=== PATIENT | female | born 1975 | race African-American/Black ===

== ENCOUNTER 2019-04-07 08:36 | Emergency (ER) | payer SELFPAY ==
[2019-04-07 09:14] LABS: APPEARANCE,URINE CLEAR; BILIRUBIN,URINE NEGATIVE (NEGATIVE); COLOR,URINE AMBER; GLUCOSE, URINE NEGATIVE (NEGATIVE); KETONES,URINE 20 mg/dL (NEGATIVE); LEUKOCYTE ESTERASE,URINE NEGATIVE (NEGATIVE); NITRITE,URINE NEGATIVE (NEGATIVE); PROTEIN,URINE NEGATIVE (NEGATIVE); URINE SPECIFIC GRAVITY 1.002; UROBILINOGEN,URINE NEGATIVE mg/dL (<2.0)
[2019-04-07] MEDS ORDERED: ONDANSETRON HCL INJ/PF 4 MG/2 ML SDV IV ONE (10:08)
[2019-04-07 10:57] LABS: ABSOLUTE EOSINOPHILS # (AUTO) 0.1 10^3/uL (0.0-0.6); ABSOLUTE LYMPHOCYTES (AUTO) 0.9 10^3/uL (0.5-4.7); ABSOLUTE MONOCYTES (AUTO) 0.4 10^3/uL (0.1-1.4); ABSOLUTE NEUT (AUTO) 1.9 10^3/uL (1.7-8.2); EOSINOPHILS % (AUTO) 2.4 % (0-6); HEMATOCRIT 40.2 % (36.0-47.0); HEMOGLOBIN 13.6 g/dL (12.0-15.5); LYMPHOCYTES % (AUTO) 26.2 % (13-45); MEAN CORPUSCULAR HGB CONC 33.9 g/dL (32.0-36.0); MEAN CORPUSCULAR VOLUME 92 fl (80-97); MONOCYTES % (AUTO) 10.9 % (3-13); PLATELET COUNT 210 10^3/uL (150-450); RED BLOOD COUNT 4.38 10^6/uL (3.72-5.28); SEGMENTED NEUTROPHILS % (AUTO) 59.5 % (42-78); TOTAL CELLS COUNTED % (AUTO) 100 %; WHITE BLOOD COUNT 3.3 10^3/uL (4.0-10.5)
[2019-04-07 11:12] LABS: ALANINE AMINOTRANSFERASE 564 U/L (9-52); ALBUMIN 4.6 g/dL (3.5-5.0); ALKALINE PHOSPHATASE 147 U/L (38-126); ANION GAP 12 (5-19); ASPARTATE AMINO TRANSFERASE 310 U/L (14-36); BILIRUBIN,TOTAL 5.9 mg/dL (0.2-1.3); BLOOD UREA NITROGEN 4 mg/dL (7-20); CALCIUM 9.7 mg/dL (8.4-10.2); CARBON DIOXIDE 24 mmol/L (22-30); CHLORIDE 104 mmol/L (98-107); LIPASE 371.1 U/L (23-300); POTASSIUM 4.3 mmol/L (3.6-5.0); SODIUM 139.8 mmol/L (137-145)
[2019-04-07 11:16] LABS: GLUCOSE 69 mg/dL (75-110)
--- NOTE | 2019-04-07 11:31 | RADIOLOGY REPORT (SQ) ---
EXAM DESCRIPTION: CT ABD/PELVIS WITH IV ONLY COMPLETED DATE/TIME: 04/07/2019 11:14 am REASON FOR STUDY: RUQ pain COMPARISON: None. TECHNIQUE: CT scan of the abdomen and pelvis performed using helical scanning technique with dynamic intravenous contrast injection. No oral contrast. Images reviewed with lung, soft tissue, and bone windows. Reconstructed coronal and sagittal MPR images reviewed. Delayed images for evaluation of the urinary system also acquired. All images stored on PACS. All CT scanners at this facility use dose modulation, iterative reconstruction, and/or weight based d osing when appropriate to reduce radiation dose to as low as reasonably achievable (ALARA). [facility]: Dose Right [facility]: CareDose [facility]: Dose Right [facility]: Teradose 4D [facility]: Nosopharm CONTRAST TYPE AND DOSE: 74 mL Omnipaque 350- low osmolar. RENAL FUNCTION: None required. The patient is less than 50 years old. RADIATION DOSE: . LIMITATIONS: None. FINDINGS: LOWER CHEST: No significant findings. No nodules or infiltrates. LIVER: Normal size. No masses. Dilated intrahepatic and extrahepatic bile ducts. SPLEEN: Normal size. No focal lesions. PANCREAS: No masses. No significant calcifications. No adjacent inflammation or peripancreatic fluid collections. Pancreatic duct not dilated. GALLBLADDER: Gallstones. No inflammatory changes to suggest cholecystitis. ADRENAL GLANDS: No significant masses or asymmetry. RIGHT KIDNEY AND URETER: No solid masses. No significant calcifications. No hydronephrosis or hyd roureter. LEFT KIDNEY AND URETER: No solid masses. No significant calcifications. No hydronephrosis or hydr oureter. AORTA AND VESSELS: No aneurysm. No dissection. Renal arteries, SMA, celiac without stenosis. RETROPERITONEUM: No retroperitoneal adenopathy, hemorrhage or masses. BOWEL AND PERITONEAL CAVITY: No masses or inflammatory changes. No free fluid or peritoneal masses. APPENDIX: Normal. PELVIS: No mass. No free fluid. Normal bladder. ABDOMINAL WALL: No masses. No hernias. BONES: No significant or acute findings. OTHER: No other significant finding. IMPRESSION: 1. GALLSTONES. DILATED BILIARY DUCTS CONSISTENT WITH COMMON BILE DUCT OBSTRUCTION. 2. NO OTHER SIGNIFICANT OR ACUTE FINDING IN THE ABDOMEN OR PELVIS ON CT SCAN WITH IV CONTRAST. TECHNICAL DOCUMENTATION: JOB ID: [id number] Quality ID # [id number]: Final reports with documentation of one or more dose reduction techniques (e.g., Au tomated exposure control, adjustment of the mA and/or kV according to patient size, use of iterative reconstruction technique) 2010 [employer]- All Rights Reserved Reading location - IP/workstation name: [email or web address]
--- NOTE | 2019-04-07 12:28 | ER Document Report ---
ED General <BUNNY ALLEN - Last Filed: 04/07/19 12:22> <SHANNEN GUILLEN - Last Filed: 04/08/19 07:57> - General Chief Complaint: Epigastric Pain Stated Complaint: CHEST PAIN Time Seen by Provider: 04/07/19 09:51 - HPI Notes: Patient is a 43-year-old female who presents to the emergency department for evaluation. She is having epigastric pain. She states she would get it frequently over the last few weeks, worse at night. She states a few nights ago it became significantly more intense. It is epigastric. She complains of pain in her right shoulder as well. She states that she is noticed darkening of her urine as well as yellowing of her eyes. She states occasionally the pain radiates up into her chest. She has had nausea with 3-4 episodes of nonbloody, nonbilious emesis. Normal bowel movements. (BUNNY ALLEN) - Related Data Allergies/Adverse Reactions: No Known Allergies Allergy (Unverified 04/07/19 08:40) Past Medical History - General Information source: Patient - Social History Smoking Status: Never Smoker Chew tobacco use (# tins/day): No Frequency of alcohol use: Occasional Drug Abuse: None Family History: Reviewed & Not Pertinent Patient has suicidal ideation: No Patient has homicidal ideation: No - Medical History Medical History: Negative Renal/ Medical History: Denies: Hx Peritoneal Dialysis Past Surgical History: Reports: Hx Hysterectomy, Hx Oral Surgery - [place] teeth <BUNNY ALLEN - Last Filed: 04/07/19 12:22> Review of Systems - Review of Systems Constitutional: No symptoms reported EENT: See HPI Cardiovascular: No symptoms reported Respiratory: No symptoms reported Gastrointestinal: See HPI Genitourinary: See HPI Female Genitourinary: No symptoms reported Musculoskeletal: No symptoms reported Skin: No symptoms reported Neurological/Psychological: No symptoms reported <KIERA ALLENMAEVE M - Last Filed: 04/07/19 12:22> Physical Exam <TIFFANYBUNNY Rosie - Last Filed: 04/07/19 12:22> - Vital signs Vitals: Temp Pulse Resp BP Pulse Ox 98.1 F 72 16 116/71 100 04/07/19 08:48 04/07/19 08:48 04/07/19 08:48 04/07/19 08:48 04/07/19 08:48 - Notes Notes: Vital signs reviewed, please refer to chart. Head is normocephalic, atraumatic. Pupils equal round, reactive to light. Scleral icterus noted. Neck is supple without meningismus. Heart is regular rate and rhythm. Lungs are clear to auscultation bilaterally. Abdomen is soft, moderate epigastric and right upper quadrant tenderness, with some voluntary guarding but no rebound noted, normoactive bowel sounds throughout. Extremities without cyanosis, clubbing. Posterior calves are nontender. Peripheral pulses are equal. Skin is warm and dry. Patient is awake, alert, neurological exam is nonfocal. (BUNNY ALLEN) Course - Laboratory Result Diagrams: 04/07/19 10:35 04/07/19 10:35 - Diagnostic Test Radiology reviewed: Reports reviewed <BUNNY ALLEN - Last Filed: 04/07/19 12:22> - Laboratory Result Diagrams: 04/08/19 06:48 04/07/19 10:35 <SHANNEN GUILLEN - Last Filed: 04/08/19 07:57> - Re-evaluation Re-evalutation: 04/07/19 12:27 Patient presents emergency department for evaluation. She does show signs of elevated bilirubin on physical exam. She is afebrile. Her vital signs are stable. Laboratory investigations reveal hyperbilirubinemia, elevated LFTs. CT scan reveals gallstones and a dilated CBD, consistent with choledocholithiasis. I do not have a strong concern for ascending cholangitis in this afebrile pat ient without leukocytosis. She remained stable. We do not have GI for ERCP. I spoke with Dr. Hernandez, internal medicine physician at [facility], who accepted the patient for further care. (BUNNY ALLEN) 04/08/19 07:55 Patient care assumed at 0 600. Repeat lab work ordered. White blood cell count went down from 3.3-2.8. Liver enzymes are pending. Patient still is having right upper quadrant pain. Other vital signs are stable. She is afebrile. Patient was given IV Zosyn and Pepcid she was offered medications for pain. Patient is on a wait list greater than 24 hours again at [facility]. This is not acceptable for timeframe. Discussion was undertaken with the patient and she was in agreement with transfer to another location. Call was made to [facility] and there was no bed. Call was made to [facility] and there was no bed. Call was made to [facility] and patient was accepted in transfer ER to ER to Dr. Sanz. Also discussed with Dr. Sheriff, covering for GI and he agreed to follow the patient while at [facility]. ERCP not available at this facility at this current time. Critical care time not counting billable procedures 32 minutes. (SHANNEN GUILLEN) - Vital Signs Vital signs: Temp Pulse Resp BP Pulse Ox 97.9 F 57 L 17 111/74 99 04/08/19 06:48 04/07/19 15:04 04/08/19 07:01 04/08/19 07:01 04/08/19 07:01 - Laboratory Laboratory results interpreted by me: 04/07/19 04/07/19 04/07/19 08:55 10:35 10:35 WBC 3.3 L Absolute Neutrophils BUN 4 L Glucose 69 L POC Glucose Total Bilirubin 5.9 H Direct Bilirubin 5.0 H AST 310 H ALT 564 H Alkaline Phosphatase 147 H Lipase 371.1 H Urine Ketones 20 H 04/07/19 04/08/19 16:59 06:48 WBC 2.8 L Absolute Neutrophils 1.6 L BUN Glucose POC Glucose 50 L Total Bilirubin Direct Bilirubin AST ALT Alkaline Phosphatase Lipase Urine Ketones - Diagnostic Test Radiology results interpreted by me: 04/07/19 12:28 Abdomen/Pelvis CT 04/07/19 10:08 IMPRESSION: 1. GALLSTONES. DILATED BILIARY DUCTS CONSISTENT WITH COMMON BILE DUCT OBSTRUCTION. 2. NO OTHER SIGNIFICANT OR ACUTE FINDING IN THE ABDOMEN OR PELVIS ON CT SCAN WITH IV CONTRAST. (BUNNY ALLEN) - EKG Interpretation by Me Additional EKG results interpreted by me: 04/07/19 12:28 Sinus mechanism with a rate of 78 bpm. Normal axis and intervals, no acute ST changes concerning for ischemia or infarction. No old studies available for comparison. (BUNNY ALLEN) Critical Care Note - Critical Care Note Total time excluding time spent on procedures (mins): 32 <SHANNEN GUILLEN - Last Filed: 04/08/19 07:57> Discharge - Discharge Admitting Provider: Dr. Hernandez <BUNNY ALLEN - Last Filed: 04/07/19 12:22> <SHANNEN GUILLEN - Last Filed: 04/08/19 07:57> - Discharge Clinical Impression: Choledocholithiasis with obstruction Condition: Stable Disposition: [place]
[2019-04-07] MEDS ORDERED: NORMAL SALINE 1000 ML 1,000 ML IV PRN (16:53)
[2019-04-07] MEDS: DEXTROSE 5%-1/2 NORMAL SALINE 1,000 ML IV PRN ×2 (17:15→17:16)
--- NOTE | 2019-04-07 22:31 | EKG REPORT ---
SEVERITY:- NORMAL ECG - SINUS RHYTHM : Confirmed by: Sagar Celeste 07-Apr-2019 22:31:26
[2019-04-08] MEDS ORDERED: PIPERACILLIN/TAZOBACTAM 3.375 GM VIAL IV ONE (06:54)
[2019-04-08 07:01] LABS: ABSOLUTE EOSINOPHILS # (AUTO) 0.1 10^3/uL (0.0-0.6); ABSOLUTE LYMPHOCYTES (AUTO) 0.9 10^3/uL (0.5-4.7); ABSOLUTE MONOCYTES (AUTO) 0.3 10^3/uL (0.1-1.4); ABSOLUTE NEUT (AUTO) 1.6 10^3/uL (1.7-8.2); BASOPHILS % (AUTO) 1.1 % (0-2); EOSINOPHILS % (AUTO) 2.6 % (0-6); HEMATOCRIT 38.5 % (36.0-47.0); HEMOGLOBIN 13.3 g/dL (12.0-15.5); LYMPHOCYTES % (AUTO) 31.8 % (13-45); MEAN CORPUSCULAR HEMOGLOBIN 31.3 pg (27.0-33.4); MEAN CORPUSCULAR HGB CONC 34.5 g/dL (32.0-36.0); MEAN CORPUSCULAR VOLUME 91 fl (80-97); MONOCYTES % (AUTO) 9.3 % (3-13); PLATELET COUNT 214 10^3/uL (150-450); RED BLOOD COUNT 4.24 10^6/uL (3.72-5.28); RED CELL DISTRIBUTION WIDTH 13.7 % (11.5-14.0); SEGMENTED NEUTROPHILS % (AUTO) 55.2 % (42-78); TOTAL CELLS COUNTED % (AUTO) 100 %; WHITE BLOOD COUNT 2.8 10^3/uL (4.0-10.5)
[2019-04-08] MEDS ORDERED: FAMOTIDINE INJ/PF 20 MG/2 ML SDV IV ONE (07:34)
[2019-04-08 08:08] VITALS: BP 110/80
[2019-04-08 08:17] LABS: ALANINE AMINOTRANSFERASE 559 U/L (9-52); ALBUMIN 3.9 g/dL (3.5-5.0); ALKALINE PHOSPHATASE 120 U/L (38-126); ANION GAP 7 (5-19); ASPARTATE AMINO TRANSFERASE 318 U/L (14-36); BILIRUBIN,DIRECT 3.8 mg/dL (0.0-0.4); BILIRUBIN,TOTAL 4.9 mg/dL (0.2-1.3); BLOOD UREA NITROGEN 4 mg/dL (7-20); CALCIUM 8.9 mg/dL (8.4-10.2); CARBON DIOXIDE 24 mmol/L (22-30); CHLORIDE 108 mmol/L (98-107); GLUCOSE 95 mg/dL (75-110); LIPASE 153.1 U/L (23-300); POTASSIUM 3.8 mmol/L (3.6-5.0)
== END 2019-04-08 08:20 | disposition short-term general hospital (02) ==
LOC: ER 08:36
DX: K80.51 Calculus of bile duct without cholangitis or cholecystitis with obstruction (principal); R10.13 Epigastric pain; R10.11 Right upper quadrant pain; M25.511 Pain in right shoulder; R07.9 Chest pain, unspecified; R11.2 Nausea with vomiting, unspecified
CPT/HCPCS: 93005; 99285; 96361; 96375; 96365; 36415; 82962; 83690; 85025; 81025; 80053; 81001; 74177; 93010; S0028; J2543

== ENCOUNTER 2019-09-05 20:44 | Emergency (ER) | payer MEDICAID ==
--- NOTE | 2019-09-05 21:03 | ER Document Report ---
ED Medical Screen (RME) - General Chief Complaint: Chest Pain Stated Complaint: CHEST PAIN Time Seen by Provider: 09/05/19 20:58 Notes: Patient is a 43-year-old female presents to the emergency department with anterior chest pain. Patient voices she has been working out recently and thought initially it may be muscular. States she now has it intermittently into her right and left jaw. Patient states she is concerned to be her heart which is why she presents to the emergency room. GENERAL: Alert, interacts well. No acute distress. LUNGS: Clear to auscultation bilaterally, no wheezes, rales, or rhonchi. No respiratory distress. HEART: Regular rate and rhythm. No murmur I have greeted and performed a rapid initial assessment of this patient. A comprehensive ED assessment and evaluation of the patient, analysis of test results and completion of the medical decision making process will be conducted by additional ED providers. I have specifically instructed the patient or family members with the patient to immediately return to any nursing staff should anything change in the patient's condition or with their chief complaint. This medical record was dictated with voice recognizing software. There may be grammatical, syntax errors that are unintended. - Related Data Allergies/Adverse Reactions: No Known Allergies Allergy (Unverified 09/05/19 20:57) Past Medical History Renal/ Medical History: Denies: Hx Peritoneal Dialysis Past Surgical History: Reports: Hx Hysterectomy, Hx Oral Surgery - [place] teeth
[2019-09-05 21:41] LABS: ABSOLUTE BASOPHILS # (AUTO) 0.1 10^3/uL (0.0-0.2); ABSOLUTE EOSINOPHILS # (AUTO) 0.3 10^3/uL (0.0-0.6); ABSOLUTE MONOCYTES (AUTO) 0.4 10^3/uL (0.1-1.4); ABSOLUTE NEUT (AUTO) 2.1 10^3/uL (1.7-8.2); BASOPHILS % (AUTO) 1.2 % (0-2); EOSINOPHILS % (AUTO) 5.8 % (0-6); HEMATOCRIT 37.9 % (36.0-47.0); HEMOGLOBIN 12.8 g/dL (12.0-15.5); LYMPHOCYTES % (AUTO) 41.7 % (13-45); MEAN CORPUSCULAR HEMOGLOBIN 30.9 pg (27.0-33.4); MEAN CORPUSCULAR HGB CONC 33.8 g/dL (32.0-36.0); MEAN CORPUSCULAR VOLUME 91 fl (80-97); MONOCYTES % (AUTO) 8.9 % (3-13); PLATELET COUNT 180 10^3/uL (150-450); RED BLOOD COUNT 4.15 10^6/uL (3.72-5.28); RED CELL DISTRIBUTION WIDTH 14.1 % (11.5-14.0); SEGMENTED NEUTROPHILS % (AUTO) 42.4 % (42-78); TOTAL CELLS COUNTED % (AUTO) 100 %; WHITE BLOOD COUNT 4.8 10^3/uL (4.0-10.5)
[2019-09-05 22:00] LABS: ALBUMIN 4.1 g/dL (3.5-5.0); ALKALINE PHOSPHATASE 81 U/L (38-126); ANION GAP 10 (5-19); ASPARTATE AMINO TRANSFERASE 26 U/L (14-36); BILIRUBIN,TOTAL 0.2 mg/dL (0.2-1.3); BLOOD UREA NITROGEN 12 mg/dL (7-20); CARBON DIOXIDE 24 mmol/L (22-30); CHLORIDE 108 mmol/L (98-107); CREATINE KINASE 292 U/L (30-135); GLUCOSE 87 mg/dL (75-110); POTASSIUM 4.7 mmol/L (3.6-5.0); TOTAL PROTEIN 7.1 g/dL (6.3-8.2)
--- NOTE | 2019-09-05 22:01 | RADIOLOGY REPORT (SQ) ---
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 COMPARISON: None. FINDINGS: The cardiomediastinal silhouette is within normal limits. No pulmonary vascular congestion is seen. No focal consolidation, pleural effusion, or pneumothorax. No acute bony findings are seen. IMPRESSION: No evidence of acute cardiopulmonary disease.
--- NOTE | 2019-09-05 23:29 | ER Document Report ---
ED General - General Chief Complaint: Chest Pain Stated Complaint: CHEST PAIN Time Seen by Provider: 09/05/19 20:58 - HPI Notes: Patient is a 43-year-old female presents emergency department for evaluation of right-sided chest pain. Is been present for about 8 days. She states it waxes and wanes in intensity, but seems to be there constantly. It radiates up into her shoulder, sometimes her back, and occasionally into her right neck and jaw. She states that at times she feels slightly nauseated with it, at times she feels slightly short of breath with it. She has not really noted that anything makes it better. She states that sometimes lying on her side, "scrunching up" her chest seems to make it hurt more. She describes it as a "deep ache." - Related Data Allergies/Adverse Reactions: No Known Allergies Allergy (Unverified 09/05/19 20:57) Home Medications: None Past Medical History - General Information source: Patient - Social History Smoking Status: Never Smoker Family History: Reviewed & Not Pertinent, Hypertension Patient has suicidal ideation: No Patient has homicidal ideation: No Renal/ Medical History: Denies: Hx Peritoneal Dialysis Past Surgical History: Reports: Hx Hysterectomy, Hx Oral Surgery - [place] teeth Review of Systems - Review of Systems Constitutional: No symptoms reported EENT: No symptoms reported Cardiovascular: See HPI Respiratory: See HPI Gastrointestinal: See HPI Genitourinary: No symptoms reported Musculoskeletal: No symptoms reported Skin: No symptoms reported Neurological/Psychological: No symptoms reported Physical Exam - Vital signs Vitals: Resp BP Pulse Ox 20 119/80 100 09/05/19 21:32 09/05/19 21:32 09/05/19 21:32 - Notes Notes: Vital signs reviewed, please refer to chart. Head is normocephalic, atraumatic. Pupils equal round, reactive to light. Neck is supple without meningismus. Heart is regular rate and rhythm. Lungs are clear to auscultation bilaterally. Abdomen is soft, nontender, normoactive bowel sounds throughout. Extremities without cyanosis, clubbing. Posterior calves are nontender. Peripheral pulses are equal. Skin is warm and dry. Patient is awake, alert, neurological exam is nonfocal. Course - Re-evaluation Re-evalutation: 09/05/19 23:28 Patient presents emergency department for evaluation of chest pain. Her vital signs are unremarkable. Laboratory investigations, EKG, chest x-ray ordered. These were all found to be negative as well. Patient has no risk factors for pulmonary embolus. She has no findings concerning for DVT. Her story is not consistent with that of a cardiac etiology, and her cardiac enzymes are unremarkable. At this point I suspect a musculoskeletal etiology, especially given the positional nature of the pain. We will send her home with a prescription for Mobic and close follow-up. She is to return to the ED with worsening or new concerning symptoms of any sort. - Vital Signs Vital signs: Temp Pulse Resp BP Pulse Ox 16 116/85 100 09/05/19 23:01 09/05/19 23:01 09/05/19 23:01 - Laboratory Result Diagrams: 09/05/19 19:32 09/05/19 19:32 Laboratory results interpreted by me: 09/05/19 09/05/19 19:32 19:32 RDW 14.1 H Chloride 108 H Creatine Kinase 292 H - Diagnostic Test Radiology reviewed: Reports reviewed Radiology results interpreted by me: 09/05/19 23:29 Chest X-Ray 09/05/19 21:01 IMPRESSION: No evidence of acute cardiopulmonary disease. - EKG Interpretation by Me Additional EKG results interpreted by me: 09/05/19 23:29 Sinus mechanism with rate of 70 bpm. Normal axis and intervals, no acute ST changes concerning for ischemia or infarction Discharge - Discharge Clinical Impression: Chest pain Condition: Stable Disposition: HOME, SELF-CARE Instructions: Chest Pain of Unclear Cause ([facility]) Additional Instructions: Take medication as prescribed, with food, for the next 5 days. Follow-up with primary care next week. If you develop increased pain, shortness of breath, vomiting, or any other new or concerning symptoms, please return immediately to the emergency department for evaluation.
[2019-09-06 00:40] VITALS: BP 114/74
--- NOTE | 2019-09-06 12:14 | EKG REPORT ---
SEVERITY:- NORMAL ECG - SINUS RHYTHM : Confirmed by: Sagar Celeste 06-Sep-2019 12:13:30
== END 2019-09-06 00:05 | disposition home or self-care (01) ==
LOC: ER 20:44
DX: R07.9 Chest pain, unspecified (principal); M25.511 Pain in right shoulder; M54.9 Dorsalgia, unspecified; M54.2 Cervicalgia; R68.84 Jaw pain
CPT/HCPCS: 36415; 71046; 80053; 82550; 84484; 85025; 93005; 93010; 99285

== ENCOUNTER 2020-10-02 11:39 | Emergency (ER) | payer MEDICAID ==
--- NOTE | 2020-10-02 12:43 | ER Document Report ---
ED Medical Screen (RME) - General Chief Complaint: Hip Pain Stated Complaint: JOINT PAIN/LOWER HIP Time Seen by Provider: 10/02/20 12:35 Primary Care Provider: LATOYA URIAS NP [Primary Care Provider] - Follow up as needed - [facility] Notes: 10/02/20 12:41 4-year-old female presents to ED for evaluation of 7 to 8 days of left-sided back pain into the left groin. Patient reports a history hip issues in the past with leg length discrepancies. Patient notes that she has been not having improvement with her symptoms. Also reports pain with burning that radiates down into the lower groin. Denies history of stones in the past. Denies dysuria or hematuria. - Related Data Allergies/Adverse Reactions: No Known Allergies Allergy (Verified 10/02/20 12:29) Past Medical History - Social History Chew tobacco use (# tins/day): No Frequency of alcohol use: None Drug Abuse: None Renal/ Medical History: Denies: Hx Peritoneal Dialysis Past Surgical History: Reports: Hx Hysterectomy, Hx Oral Surgery - [place] teeth Physical Exam - Vital signs Vitals: Temp Pulse Resp BP Pulse Ox 97.8 F 81 20 118/78 100 10/02/20 11:42 10/02/20 11:42 10/02/20 11:42 10/02/20 11:42 10/02/20 11:42 General: No acute distress. Alert and oriented x3. Sitting comfortably in a stretcher. Skin: Intact without any jaundice, pallor, or erythema. Warm and dry. Heart: Regular rate and rhythm. S1,S2. No murmurs, rubs, or gallops. Lungs: Clear to ausculation bilaterally. No wheezes, rhonchi, rales. Equal chest expansion. No retractions. Abdomen: Soft, nontender to palpation, nondistended. Positive bowel sounds in all 4 quadrants. No hepatosplenomegaly. No masses. Left CVA tenderness into left groin Neuro: GCS 15. Moving all extremities without discomfort. Extremities: No calf tenderness or edema. No cyanosis or clubbing. Radial and pedal pulses 2+ bilaterally. Brisk capillary refill. Psych: Mood and affect appropriate. Course - Vital Signs Vital signs: Temp Pulse Resp BP Pulse Ox 97.8 F 81 20 118/78 100 10/02/20 11:42 10/02/20 11:42 10/02/20 11:42 10/02/20 11:42 10/02/20 11:42 Doctor's Discharge - Discharge Referrals: LATOYA URIAS NP [Primary Care Provider] - Follow up as needed
[2020-10-02 13:15] LABS: ABSOLUTE EOSINOPHILS # (AUTO) 0.1 10^3/uL (0.0-0.6); ABSOLUTE LYMPHOCYTES (AUTO) 1.3 10^3/uL (0.5-4.7); ABSOLUTE MONOCYTES (AUTO) 0.3 10^3/uL (0.1-1.4); ABSOLUTE NEUT (AUTO) 1.7 10^3/uL (1.7-8.2); BASOPHILS % (AUTO) 1.1 % (0-2); EOSINOPHILS % (AUTO) 3.9 % (0-6); HEMATOCRIT 38.1 % (36.0-47.0); HEMOGLOBIN 12.9 g/dL (12.0-15.5); LYMPHOCYTES % (AUTO) 37.9 % (13-45); MEAN CORPUSCULAR HEMOGLOBIN 30.6 pg (27.0-33.4); MEAN CORPUSCULAR HGB CONC 33.8 g/dL (32.0-36.0); MEAN CORPUSCULAR VOLUME 91 fl (80-97); MONOCYTES % (AUTO) 8.1 % (3-13); PLATELET COUNT 205 10^3/uL (150-450); RED BLOOD COUNT 4.21 10^6/uL (3.72-5.28); RED CELL DISTRIBUTION WIDTH 13.5 % (11.5-14.0); TOTAL CELLS COUNTED % (AUTO) 100 %; WHITE BLOOD COUNT 3.6 10^3/uL (4.0-10.5)
[2020-10-02 13:21] LABS: APPEARANCE,URINE CLEAR; BILIRUBIN,URINE NEGATIVE (NEGATIVE); COLOR,URINE STRAW; GLUCOSE, URINE NEGATIVE (NEGATIVE); KETONES,URINE NEGATIVE (NEGATIVE); LEUKOCYTE ESTERASE,URINE NEGATIVE (NEGATIVE); NITRITE,URINE NEGATIVE (NEGATIVE); PROTEIN,URINE NEGATIVE (NEGATIVE); URINE SPECIFIC GRAVITY 1.004; UROBILINOGEN,URINE NEGATIVE mg/dL (<2.0)
[2020-10-02 13:36] LABS: ALBUMIN 4.2 g/dL (3.5-5.0); ALKALINE PHOSPHATASE 53 U/L (38-126); ASPARTATE AMINO TRANSFERASE 28 U/L (14-36); BILIRUBIN,TOTAL 0.4 mg/dL (0.2-1.3); BLOOD UREA NITROGEN 5 mg/dL (7-20); CALCIUM 9.4 mg/dL (8.4-10.2); CARBON DIOXIDE 29 mmol/L (22-30); CHLORIDE 106 mmol/L (98-107); GLUCOSE 80 mg/dL (75-110); TOTAL PROTEIN 7.3 g/dL (6.3-8.2)
[2020-10-02 13:42] LABS: ANION GAP 4 (5-19)
--- NOTE | 2020-10-02 16:11 | ER Document Report ---
ED Hip Pain/Injury - General Chief Complaint: Hip Pain Stated Complaint: JOINT PAIN/LOWER HIP Time Seen by Provider: 10/02/20 12:35 Primary Care Provider: LATOYA URIAS NP [Primary Care Provider] - Follow up as needed Notes: CHIEF COMPLAINT: Left hip pain for 8 days HPI: 44-year-old female presenting with nontraumatic left hip pain for 3 days. Radiates from around the left back around the hip region. Denies pelvic or abdominal pain denies dysuria denies rash denies fever. Pain is worse with walking or movement. She has a history of sciatica on the right side states this feels different. ROS: See HPI - all other systems were reviewed and are otherwise negative Constitutional: no fever Eyes: no drainage, no blurred vision ENT: no runny nose, no sore throat Cardiovascular: no chest pain Resp: no SOB, no cough GI: no vomiting, no diarrhea, no abdominal pain : no dysuria Integumentary: no rash Allergy: no hives Musculoskeletal: positive extremity pain or swelling Neurological: no numbness/tingling, no weakness MEDICATIONS: I agree with the patient medications as charted by the RN. ALLERGIES: I agree with the allergies as charted by the RN. PAST MEDICAL HISTORY/PAST SURGICAL HISTORY: Reviewed and agree as charted by RN. SOCIAL HISTORY: Reviewed and agree as charted by RN. FAMILY HISTORY: No significant familial comorbid conditions directly related to patient complaint EXAM: Reviewed vital signs as charted by RN. CONSTITUTIONAL: Alert and oriented and responds appropriately to questions. Well-appearing; well-nourished HEAD: Normocephalic; atraumatic EYES: PERRL; Conjunctivae clear, sclerae non-icteric ENT: normal nose; no rhinorrhea; moist mucous membranes; pharynx without lesions noted, no uvula edema or deviation, no tonsillar hypertrophy, phonation normal NECK: Supple without meningismus; non-tender; no cervical lymphadenopathy, no masses CARD: RRR; no murmurs, no clicks, no rubs, no gallops; symmetric distal pulses RESP: Normal chest excursion without splinting or tachypnea; breath sounds clear and equal bilaterally; no wheezes, no rhonchi, no rales, pulse oximetry 97% room air not hypoxic ABD/GI: Normal bowel sounds; non-distended; soft, non-tender in the left flank/LLQ, no rebound, no guarding; no palpable organomegaly or masses. BACK: The back appears normal and is mildly tender to palpation left lower back and hip, there is no CVA tenderness EXT: Normal ROM in all joints; non-tender to palpation; no cyanosis, no effusions, no edema SKIN: Normal color for age and race; warm; dry; good turgor; no acute lesions noted NEURO: Moves all extremities equally; Motor and sensory function intact PSYCH: The patient's mood and manner are appropriate. Grooming and personal hygiene are appropriate. MDM: 44-year-old female presenting for left hip and low back pain over the last 8 days. Seems to be musculoskeletal or sciatic in nature. Initial screening labs placed by triage provider showed no evidence of urinary infection she has no pelvic pain or abdominal or flank pain on exam suggesting renal colic. A CT has been placed via triage process. The patient was evaluated during the global COVID-19 pandemic and that diagnosis was suspected/considered upon their initial presentation. Their evaluation, treatment and testing was consistent with current guidelines for patients who present with complaints or symptoms that may be related to COVID-19 exam: - Related Data Allergies/Adverse Reactions: No Known Allergies Allergy (Verified 10/02/20 12:29) Past Medical History - Social History Smoking Status: Never Smoker Chew tobacco use (# tins/day): No Frequency of alcohol use: None Drug Abuse: None Family History: Reviewed & Not Pertinent, Hypertension Patient has homicidal ideation: No Renal/ Medical History: Denies: Hx Peritoneal Dialysis Past Surgical History: Reports: Hx Hysterectomy, Hx Oral Surgery - [place] teeth Physical Exam - Vital signs Vitals: Temp Pulse Resp BP Pulse Ox 97.8 F 81 20 118/78 100 10/02/20 11:42 10/02/20 11:42 10/02/20 11:42 10/02/20 11:42 10/02/20 11:42 Course - Re-evaluation Re-evalutation: 10/02/20 16:59 Imaging studies do not reveal acute abnormalities. When I have been in the room the patient does not seem to be in acute emergent distress with her pain. We will place her on steroids, anti-inflammatories I suspect this is a radiculopathy - Vital Signs Vital signs: Temp Pulse Resp BP Pulse Ox 98.0 F 65 20 104/78 100 10/02/20 16:45 10/02/20 16:45 10/02/20 16:45 10/02/20 16:45 10/02/20 16:45 - Laboratory Results Result Diagrams: 10/02/20 12:50 10/02/20 12:50 Laboratory Results Interpreted: 10/02/20 10/02/20 12:50 12:50 WBC 3.6 L Anion Gap 4 L BUN 5 L Critical Laboratory Results Reviewed: No Critical Results - Radiology Results Critical Radiology Results Reviewed: No Critical Results Discharge - Discharge Clinical Impression: Lumbar radiculopathy Condition: Stable Disposition: HOME, SELF-CARE Instructions: Radiculopathy ([facility]) Additional Instructions: Your lab work and imaging studies today did not show an acute emergent finding or definitive cause for your pain I suspect this is likely radiculopathy or a nerve issue related to the low back. Take the steroids and pain medications as prescribed follow-up with orthopedics and your primary care provider for reevaluation of symptoms Prescriptions: Tramadol HCl [Ultram 50 mg Tablet] 50 mg PO Q6HP PRN #12 tab PRN Reason: Prednisone [Deltasone 20 mg Tablet] 20 mg PO BID #10 tablet Referrals: LATOYA URIAS NP [Primary Care Provider] - Follow up as needed THONY BANKS JR, DO [ACTIVE PROVISIONAL STAFF] - Follow up as needed
[2020-10-02 16:46] VITALS: BP 104/78
--- NOTE | 2020-10-02 16:55 | RADIOLOGY REPORT (SQ) ---
EXAM DESCRIPTION: CT ABD/PELVIS WITH IV ONLY IMAGES COMPLETED DATE/TIME: 10/02/2020 4:35 pm REASON FOR STUDY: bilateral flank and lower abdominal pain COMPARISON: 04/07/2019 TECHNIQUE: CT scan of the abdomen and pelvis performed using helical scanning technique with dynamic intravenous contrast injection. No oral contrast. Images reviewed with lung, soft tissue, and bone windows. Reconstructed coronal and sagittal MPR images reviewed. Delayed images for evaluation of the urinary system also acquired. All images stored on PACS. All CT scanners at this facility use dose modulation, iterative reconstruction, and/or weight based d osing when appropriate to reduce radiation dose to as low as reasonably achievable (ALARA). [facility]: Dose Right [facility]: CareDose [facility]: Dose Right [facility]: Teradose 4D [facility]: [employer] Technology CONTRAST TYPE AND DOSE: contrast/concentration: Isovue 350.00 mmol/ml; Total Contrast Delivered: 99. 0 ml; Total Saline Delivered: 31.2 ml RENAL FUNCTION: BUN 5; creatinine 0.75 RADIATION DOSE: CT Rad equipment meets quality standard of care and radiation dose reduction techniq ues were employed. CTDIvol: 12.9 - 16.1 mGy. DLP: 1563 mGy-cm.. LIMITATIONS: None. FINDINGS: LOWER CHEST: No significant findings. No nodules or infiltrates. LIVER: Significantly diminished central biliary dilatation. No residual/recurrent extrahepatic bilia ry dilatation. No focal mass. Normal size. SPLEEN: Normal size. No focal lesions. PANCREAS: No masses. No significant calcifications. No adjacent inflammation or peripancreatic fluid collections. Pancreatic duct not dilated. GALLBLADDER: Surgically absent. ADRENAL GLANDS: No significant masses or asymmetry. RIGHT KIDNEY AND URETER: No solid masses. No significant calcifications. No hydronephrosis or hyd roureter. LEFT KIDNEY AND URETER: No solid masses. No significant calcifications. No hydronephrosis or hydr oureter. AORTA AND VESSELS: No aneurysm. No dissection. Renal arteries, SMA, celiac without stenosis. RETROPERITONEUM: No retroperitoneal adenopathy, hemorrhage or masses. BOWEL AND PERITONEAL CAVITY: No masses or inflammatory changes. No free fluid or peritoneal masses. APPENDIX: Not visualized. PELVIS: No mass. No free fluid. Normal bladder. ABDOMINAL WALL: Fat containing umbilical hernia. 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 No acute findings. OTHER: No other significant finding. IMPRESSION: No evidence of acute intra-abdominal infectious/inflammatory process. TECHNICAL DOCUMENTATION: JOB ID: [id number] Quality ID # [id number]: Final reports with documentation of one or more dose reduction techniques (e.g., Au tomated exposure control, adjustment of the mA and/or kV according to patient size, use of iterative reconstruction technique) 2010 [employer]- All Rights Reserved Reading location - IP/workstation name: [email or web address]
[2020-10-02] MEDS ORDERED: DEXAMETHASONE SOD PHOSPHATE INJ 4 MG/1 ML VIAL IV ONE (17:00)
[2020-10-02] MEDS ORDERED: HYDROCODONE/ACETAMINOPHEN 5-325 MG TABLET PO ONE (17:01)
== END 2020-10-02 17:38 | disposition home or self-care (01) ==
LOC: ER 11:39
DX: M54.16 Radiculopathy, lumbar region (principal); M54.5 Low back pain; M25.552 Pain in left hip; Z20.828 Contact with and (suspected) exposure to other viral communicable diseases
CPT/HCPCS: 99285; 96374; 36415; 83690; 85025; 81025; 80053; 81001; 74177; J1100